=== PATIENT | female | born 1965 | race Caucasian/White ===

== ENCOUNTER 2019-06-13 10:15 | Outpatient (CLI) | payer MEDICAID | END 2019-06-13 23:59 | disposition home or self-care (01) | LOC: VAS 10:15 | PROVIDERS: ATTEND Orthopaedic Surgery | DX: M71.22 Synovial cyst of popliteal space [Baker], left knee (principal); M71.21 Synovial cyst of popliteal space [Baker], right knee; R59.0 Localized enlarged lymph nodes; E66.8 Other obesity; M19.011 Primary osteoarthritis, right shoulder; M19.012 Primary osteoarthritis, left shoulder | CPT/HCPCS: 93970 ==